=== PATIENT | female | born 1955 | race Caucasian/White ===

== ENCOUNTER → 2020-01-16 | Outpatient (CLI) | payer BC ==
[~2020-01-16] MED LIST: CELEBREX 200MG200 MG PO; L-LYSINE1000 MG PO; PRINIVIL10 MG PO; ULTRAM 50MG TAB50 MG PO; VITAMIN B121000 MC2 PO; VITAMIN C500 MG PO; VITAMIN K100 MCG PO
== END ==
LOC: MC.RAD 09:48
DX: Z12.31 Encounter for screening mammogram for malignant neoplasm of breast (principal)